=== PATIENT | male | born 1955 ===

== ENCOUNTER 2020-12-08 11:51 | Inpatient (IN) | payer OTHER, MEDICARE ==
[~2020-12-08] VITALS: Ht 167.6 cm; Wt 90.7 kg
[~2020-12-08 11:51] MED LIST: ACET500; ASPI81EC; ATEN25; COLE5P; GEMF600; HYDACE5; IBUP800; LISI5; METF500
[2020-12-08 12:24] LABS: Hematocrit 51.6 % (37.0-53.0); Hemoglobin 17.4 g/dL (13.5-17.5); Mean Corpuscular HGB 28.7 pg (26.0-34.0); Mean Corpuscular HGB Conc 33.7 g/dL (31.5-36.5); Mean Corpuscular Volume 85 fL (80-100); Mean Platelet Volume 11.3 fL (9.1-12.4); Platelet Count 240 K/mm3 (150-400); RDW Standard Deviation 43.8 fL (35.1-46.3); Red Blood Cell Count 6.06 M/mm3 (4.30-5.90); White Blood Cell Count 24.58 K/mm3 (4.00-11.30)
[2020-12-08 12:44] LABS: Alanine Aminotransfer (ALT/SGP 38 U/L (12-78); Albumin, Blood 3.6 g/dL (3.4-5.0); Albumin/Globulin Ratio 0.7 (0.8-1.8); Alk Phos 95 U/L (50-136); Anion Gap 7 mmol/L (6-16); Aspartate Aminotrans (AST/SGOT 34 U/L (12-37); Bilirubin, Total 0.7 mg/dL (0.1-1.0); Blood Urea Nitrogen 27 mg/dL (8-24); CO2, Blood 24 mmol/L (21-32); Calcium, Blood 9.4 mg/dL (8.5-10.1); Chloride, Blood 100 mmol/L (98-108); Creatinine, Blood 1.23 mg/dL (0.60-1.20); Globulin, Blood 5.1 g/dL (2.2-4.0); Glomerular Filtration Rate >60 (60-); Glucose, Blood 212 mg/dL (70-99); Potassium, Blood 4.2 mmol/L (3.5-5.5); Sodium, Blood 131 mmol/L (136-145); Total Protein, Blood 8.7 g/dL (6.4-8.2)
[2020-12-08 12:48] LABS: BAND PERCENT MAN 4 % (0-8); BASOPHILS PERCENT MAN 0 % (0-2); EOSINOPHILS PERCENT MAN 0 % (0-6); LYMPHOCYTES ABSOLUTE MAN 0.73 K/mm3 (0.84-5.20); LYMPHOCYTES PERCENT MAN 3 % (21-46); MONOCYTES ABSOLUTE MAN 2.45 K/mm3 (0.16-1.47); MONOCYTES PERCENT MAN 10 % (4-13); NEUTROPHILS ABSOLUTE MAN 21.38 K/mm3 (1.96-9.15); SEG NEUTROPHILS PERCENT MAN 83 % (41-73); TOTAL CELLS COUNTED 100
[2020-12-08] MEDS ORDERED: CLOP75 PO (14:01)
[2020-12-08] MEDS ORDERED: METO25 PO (14:02)
[2020-12-08] MEDS ORDERED: LISI10 PO (14:04)
[2020-12-08] MEDS ORDERED: BASAGLAR K100 UNIT/3 SC (14:05)
[2020-12-08 16:27] LABS: SARS-Cov-2 (COVID-19) PCR, MMC NEGATIVE (NEGATIVE)
--- NOTE | 2020-12-08 17:15 | NUR ---
PT ARRIVED TO ROOM 209 VIA WC PT REPORTS ABD PAIN 02/25 PT DENIES NAUSEA AT THIS TIME WAS TAKING ICE CHIPS EARLIER PT HAD HIS BLOOD THINNER TODAY AROUND 1100 BUT DID NOT HAVE IT YESTERDAY HOSP PLACED ORDERS FOR PT GALLBLADDER BOOK GIVEN
--- NOTE | 2020-12-09 03:42 | NUR ---
PT A/OX4. VSS ON RA. PAIN MANAGED WELL W/ 1MG IV DILAUDID. DENIES N/V AND CP. SINUS RHYTHM ON TELE. CONTINOUS IV FLUIDS INFUSING. CLEAR LIQUID DIET TOLERATED WELL. NPO AT MIDNIGHT FOR POSSIBLE PROCEDURE. USING URINAL.
[2020-12-09 04:24] LABS: BASOPHILS ABSOLUTE AUTO 0.03 K/mm3 (0.00-0.23); BASOPHILS PERCENT AUTO 0 % (0-2); EOSINOPHILS ABSOLUTE AUTO 0.03 K/mm3 (0.00-0.68); EOSINOPHILS PERCENT AUTO 0 % (0-6); Hematocrit 45.2 % (37.0-53.0); Hemoglobin 15.1 g/dL (13.5-17.5); IMMATURE GRAN ABSOLUTE AUTO 0.06 K/mm3 (0.00-0.10); IMMATURE GRAN PERCENT AUTO 0 % (0-1); LYMPHOCYTES ABSOLUTE AUTO 0.97 K/mm3 (0.84-5.20); LYMPHOCYTES PERCENT AUTO 6 % (21-46); MONOCYTES ABSOLUTE AUTO 1.47 K/mm3 (0.16-1.47); MONOCYTES PERCENT AUTO 10 % (4-13); Mean Corpuscular HGB 28.7 pg (26.0-34.0); Mean Corpuscular HGB Conc 33.4 g/dL (31.5-36.5); Mean Corpuscular Volume 86 fL (80-100); Mean Platelet Volume 11.3 fL (9.1-12.4); NEUTROPHILS ABSOLUTE AUTO 12.73 K/mm3 (1.96-9.15); NEUTROPHILS PERCENT AUTO 83 % (41-73); Platelet Count 193 K/mm3 (150-400); RDW Coefficient Variation 14.4 % (11.7-14.2); RDW Standard Deviation 45.6 fL (35.1-46.3); Red Blood Cell Count 5.27 M/mm3 (4.30-5.90); White Blood Cell Count 15.29 K/mm3 (4.00-11.30)
[2020-12-09 04:49] LABS: Alanine Aminotransfer (ALT/SGP 39 U/L (12-78); Albumin, Blood 2.8 g/dL (3.4-5.0); Albumin/Globulin Ratio 0.6 (0.8-1.8); Alk Phos 83 U/L (50-136); Anion Gap 5 mmol/L (6-16); Aspartate Aminotrans (AST/SGOT 32 U/L (12-37); Bilirubin, Total 0.5 mg/dL (0.1-1.0); Blood Urea Nitrogen 29 mg/dL (8-24); Bun/Creatinine Ratio 24.6 (12.0-20.0); CO2, Blood 25 mmol/L (21-32); Calcium, Blood 8.4 mg/dL (8.5-10.1); Chloride, Blood 106 mmol/L (98-108); Creatinine, Blood 1.18 mg/dL (0.60-1.20); Globulin, Blood 4.4 g/dL (2.2-4.0); Glomerular Filtration Rate >60 (60-); Glucose, Blood 98 mg/dL (70-99); Magnesium, Blood 2.4 mg/dL (1.6-2.4); Potassium, Blood 4.2 mmol/L (3.5-5.5); Sodium, Blood 136 mmol/L (136-145); Total Protein, Blood 7.2 g/dL (6.4-8.2)
--- NOTE | 2020-12-09 18:19 | NUR ---
SHIFT SUMMARY PATIENT ALERT AND ORIENTED IN AM. WENT TO OR FOR LAP DOLORES. SLEEPING WHEN RETURNED FROM OR ABOUT 1700. LAP SITES X4, TRISAT WITH SS OUTPUT. ABD TENDER. DENIES PAIN AT THIS TIME. WILL ADVANCE DIET TOLERATED. TELE AT NSR AT 95. WILL REPORT OFF TO CHIEF I DISPATCHER RN.
[2020-12-10 05:24] LABS: BASOPHILS ABSOLUTE AUTO 0.02 K/mm3 (0.00-0.23); BASOPHILS PERCENT AUTO 0 % (0-2); Hematocrit 42.8 % (37.0-53.0); Hemoglobin 13.7 g/dL (13.5-17.5); LYMPHOCYTES ABSOLUTE AUTO 0.75 K/mm3 (0.84-5.20); LYMPHOCYTES PERCENT AUTO 7 % (21-46); MONOCYTES ABSOLUTE AUTO 0.78 K/mm3 (0.16-1.47); MONOCYTES PERCENT AUTO 7 % (4-13); Mean Corpuscular HGB 28.4 pg (26.0-34.0); Mean Corpuscular Volume 89 fL (80-100); Mean Platelet Volume 12.1 fL (9.1-12.4); Platelet Count 211 K/mm3 (150-400); RDW Coefficient Variation 14.1 % (11.7-14.2); RDW Standard Deviation 45.7 fL (35.1-46.3); Red Blood Cell Count 4.82 M/mm3 (4.30-5.90)
[2020-12-10 05:29] LABS: EOSINOPHILS PERCENT AUTO 0 % (0-6); IMMATURE GRAN ABSOLUTE AUTO 0.06 K/mm3 (0.00-0.10); IMMATURE GRAN PERCENT AUTO 1 % (0-1); NEUTROPHILS ABSOLUTE AUTO 9.29 K/mm3 (1.96-9.15); NEUTROPHILS PERCENT AUTO 85 % (41-73)
[2020-12-10 06:02] LABS: Alanine Aminotransfer (ALT/SGP 68 U/L (12-78); Albumin, Blood 2.5 g/dL (3.4-5.0); Albumin/Globulin Ratio 0.6 (0.8-1.8); Alk Phos 106 U/L (50-136); Anion Gap 7 mmol/L (6-16); Aspartate Aminotrans (AST/SGOT 59 U/L (12-37); Bilirubin, Total 0.4 mg/dL (0.1-1.0); Blood Urea Nitrogen 32 mg/dL (8-24); Bun/Creatinine Ratio 27.8 (12.0-20.0); CO2, Blood 23 mmol/L (21-32); Calcium, Blood 7.9 mg/dL (8.5-10.1); Chloride, Blood 103 mmol/L (98-108); Creatinine, Blood 1.15 mg/dL (0.60-1.20); Globulin, Blood 4.5 g/dL (2.2-4.0); Glomerular Filtration Rate >60 (60-); Glucose, Blood 219 mg/dL (70-99); Sodium, Blood 133 mmol/L (136-145)
--- NOTE | 2020-12-10 06:41 | NUR ---
PT PAINFUL, ASKING FOR PAIN MEDICATION EVERY FEW HOURS. MEDICATION CHANGED PER MD TO ORAL INSTEAD OF IV. POD 1. NO NAUSEA. TOLERATING SIPS/CHIPS/JELLO. TRISTA DRAINAGE IS SANGUINOUS. DRESSINGS WITHIN NORMAL LIMITS. URINATING AND PASSING GAS.
--- NOTE | 2020-12-10 18:16 | NUR ---
[facility]/O X4, VSS. POD 1 LAP DOLORES. X4 LAP SITES ON ABD W/ STERI STRIPS, C/D/I. TRISTA DRAIN TO R SIDE, DRAINING APPROPRIATLY, SANG FLUID. ADVANCED TO REG DIET PER ORDERS, TOLERATING VERY WELL. EATING, DRINKING, VOIDING, & PASSING GAS. NO BM YET. PAIN MANAGED PER EMAR AND REMAINS TOLERABLE TO PT. AMBLATED IN HALLS WELL TODAY, UP IN ROOM IND T/O SHIFT. WILL CONTINUE TO MONITOR.
--- NOTE | 2020-12-11 04:29 | NUR ---
SHIFT SUMMARY LYING IN SEMI FOWLERS WITH EYES CLOSED. AAO X3, HARRIS, FOLLOWS ALL COMMANDS. HAS RESTED WELL. MEDICATED WITH IVP PAIN MEDS MULTIPLE TIMES THIS SHIFT. STATES THAT THE BULK OF HIS PAIN IS WHERE HIS TRISTA DRAIN IS LOCATED. TRISTA DRAIN FOUND SEVERAL TIMES WHEN NURSING ENTERED ROOM TO ADMIN PAIN MEDS HANGING OFF THE BED. STATES THAT IT HAPPENS WHEN HE, "FLIPS AND FLOPS LIKE A FISH IN THE BED". DENIES FURTHER NEEDS OR WANTS AT THIS TIME. SAFETY MEASURES IN PLACE. WILL CONTINUE TO MONITOR AND GIVE HAND OFF TO ONCOMING SHIFT USING SBAR DURING BEDSIDE REPORT.
[2020-12-11 05:08] LABS: BASOPHILS ABSOLUTE AUTO 0.01 K/mm3 (0.00-0.23); BASOPHILS PERCENT AUTO 0 % (0-2); EOSINOPHILS ABSOLUTE AUTO 0.14 K/mm3 (0.00-0.68); EOSINOPHILS PERCENT AUTO 1 % (0-6); Hematocrit 45.6 % (37.0-53.0); Hemoglobin 14.6 g/dL (13.5-17.5); IMMATURE GRAN ABSOLUTE AUTO 0.06 K/mm3 (0.00-0.10); IMMATURE GRAN PERCENT AUTO 1 % (0-1); LYMPHOCYTES ABSOLUTE AUTO 1.45 K/mm3 (0.84-5.20); LYMPHOCYTES PERCENT AUTO 14 % (21-46); MONOCYTES ABSOLUTE AUTO 1.55 K/mm3 (0.16-1.47); MONOCYTES PERCENT AUTO 15 % (4-13); Mean Corpuscular HGB 28.4 pg (26.0-34.0); Mean Corpuscular Volume 89 fL (80-100); Mean Platelet Volume 10.8 fL (9.1-12.4); NEUTROPHILS ABSOLUTE AUTO 7.43 K/mm3 (1.96-9.15); NEUTROPHILS PERCENT AUTO 70 % (41-73); Platelet Count 236 K/mm3 (150-400); RDW Coefficient Variation 13.8 % (11.7-14.2); RDW Standard Deviation 44.8 fL (35.1-46.3); Red Blood Cell Count 5.14 M/mm3 (4.30-5.90); White Blood Cell Count 10.64 K/mm3 (4.00-11.30)
[2020-12-11 05:36] LABS: Alanine Aminotransfer (ALT/SGP 67 U/L (12-78); Albumin, Blood 2.6 g/dL (3.4-5.0); Albumin/Globulin Ratio 0.6 (0.8-1.8); Alk Phos 94 U/L (50-136); Anion Gap 4 mmol/L (6-16); Aspartate Aminotrans (AST/SGOT 34 U/L (12-37); Bilirubin, Total 0.3 mg/dL (0.1-1.0); Blood Urea Nitrogen 31 mg/dL (8-24); Bun/Creatinine Ratio 28.2 (12.0-20.0); CO2, Blood 27 mmol/L (21-32); Calcium, Blood 8.2 mg/dL (8.5-10.1); Chloride, Blood 103 mmol/L (98-108); Globulin, Blood 4.6 g/dL (2.2-4.0); Glomerular Filtration Rate >60 (60-); Glucose, Blood 156 mg/dL (70-99); Magnesium, Blood 2.3 mg/dL (1.6-2.4); Potassium, Blood 4.6 mmol/L (3.5-5.5); Sodium, Blood 134 mmol/L (136-145); Total Protein, Blood 7.2 g/dL (6.4-8.2)
[2020-12-11] MEDS ORDERED: BISA10S PR (10:54)
[2020-12-11] MEDS ORDERED: FAMO20 PO (10:55)
[2020-12-11] MEDS ORDERED: HYDR1TAB94 PO (10:55)
[2020-12-11] MEDS ORDERED: AMOCLA875 PO (10:56)
[2020-12-11] MEDS ORDERED: PROBIOTIC1 EA13 PO (10:57)
[2020-12-11] MEDS ORDERED: ONDA4ODT MM (10:57)
--- NOTE | 2020-12-11 11:30 | NUR ---
DISCHARGE PT UP IN ROOM INDEPENDENTLY, VSS, EATING, DRINKING, VOIDING AND PASSING GAS. X4 LAP SITES WNL, TRISTA REMOVED THIS AM AND SITE HAS SCANT RED DRNG. [facility], DISCHARGE INSTRUCTIONS & HARD SCRIPTS SENT W/ PT. PT WHEELED OUT VIA W/C.
== END 2020-12-11 11:40 | disposition home or self-care (01) | DRG 854 ==
LOC: ER 11:51 → SURS 14:17
PROVIDERS: Emergency Medicine; Physician Assistant; Surgery; ADMIT Family Medicine
PROC: 0FT44ZZ Resection of Gallbladder, Percutaneous Endoscopic Approach (ICD-10-PCS; principal; 2020-12-09 13:00)
DX: A41.9 Sepsis, unspecified organism (principal); K80.00 Calculus of gallbladder with acute cholecystitis without obstruction; E87.1 Hypo-osmolality and hyponatremia; N17.9 Acute kidney failure, unspecified; K82.A1 Gangrene of gallbladder in cholecystitis; Z20.822 Contact with and (suspected) exposure to COVID-19; I25.10 Atherosclerotic heart disease of native coronary artery without angina pectoris; E11.65 Type 2 diabetes mellitus with hyperglycemia; G89.4 Chronic pain syndrome; I10 Essential (primary) hypertension; E78.5 Hyperlipidemia, unspecified; M19.90 Unspecified osteoarthritis, unspecified site; I25.2 Old myocardial infarction; Z95.5 Presence of coronary angioplasty implant and graft; Z79.4 Long term (current) use of insulin; Z90.49 Acquired absence of other specified parts of digestive tract; Z87.891 Personal history of nicotine dependence; Z96.612 Presence of left artificial shoulder joint; Z96.611 Presence of right artificial shoulder joint; Z79.899 Other long term (current) drug therapy; Z79.02 Long term (current) use of antithrombotics/antiplatelets; Z88.0 Allergy status to penicillin; Z88.1 Allergy status to other antibiotic agents
CPT/HCPCS: 36415; 74300; 76705; 80053; 82947; 83036; 83605; 83690; 83735; 84145; 85025; 88304; 93005; 93010; 96365; 96372-59; 96375; 96376; 99285-25; A9270; C1729; J1100; J1170; J1644; J1885; J2250; J2405; J2543; J2704; J3010; J7030; J7120; U0004